=== PATIENT | female | born 1955 | race Caucasian/White ===

== ENCOUNTER → 2016-08-28 | Outpatient (CLI) | payer BC ==
--- NOTE | 2016-08-30 15:01 | XCELERA REPORT ---
[address] [address] Lower Extremity Arterial Evaluation Name: CARSON ALVAREZ Age: 60 yrs Gender: Female : 1955 Patient Status: Outpatient Patient Location: Study Date: 08/28/2016 01:27 PM Procedure: A color flow and duplex scan of the lower extremity arteries was performed bilaterally with velocity and waveform anaylsis. Ankle brachial indicies performed. Reason For Study: PVD Ordering Physician: NIYA WINSTON Performed By: Del Olivares Measurements and Calculations Right Left APPAREL RENTAL CLERK PSV 180.7 139.9 cm/sec Prox PFA PSV -70.6 -77.2 cm/sec Dist SFA PSV -107.6 -121.3 cm/sec Prox Pop A PSV 84.9 85.0 cm/sec Dist BRIAN PSV 87.3 70.3 cm/sec Dist CLAY PROCESSING LABOURER PSV 78.6 22.4 cm/sec Kody Pedis PSV 79.5 70.7 cm/sec Right Side Arterial Evaluation Normal velocity, waveform and triphasic flow are present, from the Common Femoral artery down to the infrageniculate vessels. The ankle-brachial index is 1.13. 0 % stenosis is noted. PPG's are normal. Left Side Arterial Evaluation Normal velocity, waveform and triphasic flow are present, from the Common Femoral artery down to the infrageniculate vessels. The ankle-brachial index is 1.10. 0 % stenosis is noted. PPG's are mildly dampened. Interpretation Summary No hemodynamically significant lesions in the bilateral lower extremities, on duplex imaging, at rest. Significance of PPG's on left is uncertain. : NIYA WINSTON > Blair Covington
== END ==
LOC: SP 13:02
PROVIDERS: ATTEND Podiatrist Foot Surgery
DX: I73.9 Peripheral vascular disease, unspecified (principal)
CPT/HCPCS: 93925

== ENCOUNTER 2016-11-05 06:39 | Day surgery (SDC) | payer BC ==
[~2016-11-05 06:39] MED LIST: CEFAZOLIN 1 GM/D5W RTU 1 GM/50 ML RTUPB IV PRN
[2016-11-05] MEDS ORDERED: MIDAZOLAM 2 MG/2 ML INJ ONE (06:54)
[2016-11-05] MEDS ORDERED: FENTANYL CITRATE INJ/PF 100 MCG/2 ML AMPUL ONE (06:54)
[2016-11-05] MEDS ORDERED: PROPOFOL INJ 200 MG/20 ML VIAL IV ONE (06:55)
[2016-11-05] MEDS ORDERED: BUPIVACAINE HCL 0.5 % INJ/PF 30 ML SDV ONE (07:11)
[2016-11-05] MEDS ORDERED: LIDOCAINE 2% INJ (20 MG/ML) 20 ML MDV ONE (07:11)
[2016-11-05] MEDS: WATER FOR INJECTION,STERILE 10 ML SDV ONE ×2 (08:35)
[2016-11-05] MEDS: BACITRACIN INJ 50,000 UNIT VIAL ONE ×2 (08:35)
[2016-11-05] MEDS: POLYMYXIN B SULFATE INJ 500000 UNIT VIAL ONE ×2 (08:35)
--- NOTE | 2016-11-05 09:43 | SURGICARE OPERATIVE REPORT E ---
[facility] Operative Report NAME: CARSON ALVAREZ AGE: 61Y DATE OF SURGERY: 11/05/2016 ROOM: PREOPERATIVE DIAGNOSIS: Hammertoe deformity with contracted second metatarsophalangeal joint, right foot. POSTOPERATIVE DIAGNOSIS: Hammertoe deformity with contracted second metatarsophalangeal joint, right foot. SURGICAL PROCEDURE: Arthroplasty at the proximal interphalangeal joint, second digit, right foot. SURGEON: NIYA WINSTON DPM ANESTHESIA: Babatunde Blankenship DPM PROCEDURE: Following induction of IV regional and local anesthesia, the right foot and leg were prepped and draped in the usual sterile manner. A pneumatic tourniquet was placed around the right ankle and inflated to 250 mmHg after exsanguination of the limb via Esmarch bandage. The following surgical procedure was then performed: Arthroplasty, proximal interphalangeal joint, second digit, right foot. Attention was directed to the dorsal aspect of the second digit of the right foot where an approximately 1.5-cm dorsal linear incision was made. The incision was deepened via sharp dissection. All bleeders were clamped and Bovied as necessary for the purposes of hemostasis. The extensor digitorum longus tendon was sharply incised in a transverse manner and reflected proximally from the bone. The hypertrophied head of the proximal phalanx was freed from its soft tissue attachments via sharp dissection. Utilizing bone cutting forceps, the hypertrophied head of the proximal phalanx was osteotomized perpendicular to the long axis of the bone and removed en toto from the wound. It was determined that a little bit more bone needed to be removed, so this was done utilizing a rongeur. The stump was then rasped smooth utilizing a handheld rasp. Attention was directed to the plantar aspect of the wound and utilizing sharp dissection the plantar plate was removed. The flexor digitorum longus tendon was isolated and clamped distally under the middle phalanx. It was then cut distally underneath the middle phalanx. The flexor digitorum longus tendon was then split longitudinally. The tendon was then threaded over the proximal phalanx medially and laterally and sutured on top of the proximal phalanx utilizing 3-0 FiberWire. The area was then flushed with copious amounts of an antibacterial saline solution. The extensor digitorum longus tendon was then coaptated and maintained utilizing simple interrupted sutures of 3-0 Vicryl. The skin was then coaptated and maintained utilizing horizontal mattress sutures of 5-0 nylon. It was noted at this time that the second toe was now no longer rigidly dorsally flexed up on top of itself and was now in a more rectus position. The foot was first cleansed with an alcohol foam. A dry sterile dressing was then applied consisting of Howard silk, 4 x 4s, Conform, Kerlix and Coban. The pneumatic tourniquet was released. It was noted that all digits were warm and viable. The patient was transferred to the recovery room. DICTATING PHYSICIAN: NIYA WINSTON D.P.M. [id number] PHY#: [id number] ID: [id number] JOB#: [id number] ACCT: [id number] cc:NIYA WINSTON DPM > INOCENCIA
--- NOTE | 2016-11-05 09:43 | SURGICARE DISCHARGE SUMMARY E ---
[facility] Discharge Summary NAME: CARSON ALVAREZ AGE: 61Y ADMITTED: 11/05/2016 DISCHARGED: 11/05/2016 SURGICAL PROCEDURE: Arthroplasty at the proximal interphalangeal joint, second digit, right foot. POSTOPERATIVE DIAGNOSIS: Hammertoe deformity, second digit, right foot, with contracted second metatarsophalangeal joint. SURGEON: Patricia Chen DPM HOUSEKEEPING AIDE: Babatunde Blankenship DPM SUMMARY: The patient was admitted to [facility] with a chief complaint of a painful second toe on her right foot. She has had a problem with the top of the toe ulcerating where it hit up against her shoes. The ulcer has finally healed and she now desired to have the toe straightened so she would no longer have this problem. The patient underwent the above surgical procedures without any complication and was transferred to the recovery room. She was discharged with a surgical shoe, an ice pack, postoperative instructions, and postoperative prescription for Tramadol 50 mg, #60. She was given a follow-up appointment in the doctor's office in 1 week and the patient was discharged from [facility]. DICTATING PHYSICIAN: PATRICIA CHEN D.P.M. [id number] PHY#: [id number] ID: [id number] JOB#: [id number] ACCT: [id number] cc:PATRICIA CHEN DPM >
== END 2016-11-05 09:57 | disposition home or self-care (01) ==
LOC: SC 06:39
PROVIDERS: ATTEND Podiatrist Foot Surgery
PROC: 0SQP0ZZ Repair Right Toe Phalangeal Joint, Open Approach (ICD-10-PCS; principal; 2016-11-05 07:30)
DX: M20.41 Other hammer toe(s) (acquired), right foot (principal); M19.90 Unspecified osteoarthritis, unspecified site; I10 Essential (primary) hypertension; K21.9 Gastro-esophageal reflux disease without esophagitis; E11.9 Type 2 diabetes mellitus without complications; F17.210 Nicotine dependence, cigarettes, uncomplicated; G47.30 Sleep apnea, unspecified; Z88.2 Allergy status to sulfonamides; Z88.5 Allergy status to narcotic agent; Z79.82 Long term (current) use of aspirin; Z79.899 Other long term (current) drug therapy; Z91.040 Latex allergy status
CPT/HCPCS: 82962; 28285; J2250; J3490 ×4; J0690; J2704; 1480; J3010

== ENCOUNTER → 2017-09-25 | Outpatient (CLI) | payer BC ==
--- NOTE | 2017-09-25 13:09 | WOMENS IMAGING REPORT ---
EXAM DESCRIPTION: BONE DENSITY HIP/SPINE COMPLETED DATE/TIME: 09/25/2017 11:56 am REASON FOR STUDY: OSTEOPOROSIS M81.0 AGE-RELATED OSTEOPOROSIS W/O CURRENT PATHOLOGICAL FRAC COMPARISON: None. TECHNIQUE: Dual-Energy X-ray Absorptiometry (DEXA) of the AP Spine and Hip. LIMITATIONS: None. FINDINGS: LUMBAR SPINE: The bone mineral density (BMD) measured from L1-L4 in the AP projection correlates with a T-score of 2.0, which is normal as defined by the World Health Organization. HIP: The bone mineral density (BMD) measured in the left hip correlates with a T-score of -1.0 in the femo ral neck, which is borderline osteopenia as defined by the World Health Organization. IMPRESSION: 1. LUMBAR SPINE: Normal 2. HIP: Borderline osteopenia COMMENT: The World Health Organization defines low BMD as follows: T-score: Normal: Greater than -1.0 Osteopenia: Between -1.0 and -2.5 Osteoporosis: Less than -2.5 without fractures Established osteoporosis: Less than -2.5 with fractures In general, you may wish to consider: Diagnosis Treatment Follow-up DEXA Normal BMD Prevention 2-3 years Osteopenia Prevention/Therapy 1-2 years Osteoporosis Therapy Yearly TECHNICAL DOCUMENTATION: JOB ID: [id number] [employer]- All Rights Reserved Reading location - IP/workstation name: [email or web address]
== END ==
LOC: WI 10:22
PROVIDERS: ATTEND Physician Assistant Medical
DX: M81.0 Age-related osteoporosis without current pathological fracture (principal)
CPT/HCPCS: 77080

== ENCOUNTER 2017-12-15 10:33 | Day surgery (SDC) | payer BC ==
[2017-12-07 12:28] LABS: HEMATOCRIT 40.9 % (36.0-47.0); HEMOGLOBIN 14.3 g/dL (12.0-15.5); MEAN CORPUSCULAR HEMOGLOBIN 34.1 pg (27.0-33.4); MEAN CORPUSCULAR HGB CONC 34.9 g/dL (32.0-36.0); MEAN CORPUSCULAR VOLUME 98 fl (80-97); PLATELET COUNT 154 10^3/uL (150-450); RED BLOOD COUNT 4.19 10^6/uL (3.72-5.28); RED CELL DISTRIBUTION WIDTH 13.5 % (11.5-14.0); WHITE BLOOD COUNT 6.4 10^3/uL (4.0-10.5)
[2017-12-07 12:54] LABS: ANION GAP 15 (5-19); BLOOD UREA NITROGEN 24 mg/dL (7-20); CALCIUM 9.7 mg/dL (8.4-10.2); CARBON DIOXIDE 25 mmol/L (22-30); CHLORIDE 100 mmol/L (98-107); GLUCOSE 105 mg/dL (75-110); POTASSIUM 4.3 mmol/L (3.6-5.0); SODIUM 140.3 mmol/L (137-145)
[2017-12-07 12:55] LABS: INTERNATIONAL RATION (INR) 1.05; PARTIAL THROMBOPLASTIN TIME 32.5 SEC (23.5-35.8); PROTHROMBIN TIME 14.2 SEC (11.4-15.4)
--- NOTE | 2017-12-07 12:58 | EKG REPORT ---
SEVERITY:- ABNORMAL ECG - SINUS RHYTHM NONSPECIFIC T WAVE CHANGES ANTEROSEPTAL WALL. : Confirmed by: Brian Mendoza MD 07-Dec-2017 12:58:09
[~2017-12-15 10:33] MED LIST changes: +LACTATED RINGERS 1000 ML IV PRN; +LIDOCAINE 0.5% INJ-PF (5 MG/ML) 50 ML SDV SUBCUT PRN; +LIDOCAINE 1%/EPINEPHRINE INJ 20 ML VIAL ONE; +SODIUM BICARBONATE 8.4% INJ 50 MEQ/50 ML DISP.SYRIN ONE
[2017-12-15] MEDS ORDERED: PROPOFOL INJ 200 MG/20 ML VIAL IV ONE (10:39)
[2017-12-15] MEDS ORDERED: MIDAZOLAM 2 MG/2 ML INJ ONE (10:39)
[2017-12-15] MEDS ORDERED: FENTANYL CITRATE INJ/PF 250 MCG/5 ML AMPULE ONE (12:07)
[2017-12-15] MEDS ORDERED: DIPHENHYDRAMINE HCL 50 MG/ML VIAL IV PRN (12:53)
[2017-12-15] MEDS ORDERED: PROMETHAZINE HCL INJ 25 MG/1 ML VIAL IV PRN (12:53)
[2017-12-15] MEDS ORDERED: MEPERIDINE HCL/PF INJ 25 MG/1 ML DISP.SYRIN IV PRN (12:53)
[2017-12-15] MEDS ORDERED: FENTANYL CITRATE INJ/PF 100 MCG/2 ML AMPUL IV PRN ×3 (12:53)
--- NOTE | 2017-12-15 13:04 | Operative Report ---
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 SURGEON: DAKOTA RANGEL ANESTHESIA: LMAC TISSUE REMOVED OR ALTERED: Basal squamous cell carcinoma of the right lower knee COMPLICATIONS: None ESTIMATED BLOOD LOSS: Minimal PROCEDURE: Patient seen and was marked prior to being brought into the operating room. Patient was brought into the operating room and placed on the operating room table in a supine position. Patient was then prepped with a Betadine scrub and Betadine solution and draped in a sterile and aseptic manner. The area was then marked. 12 O'clock was marked towards the knee 3 O'clock was marked towards the pre-tibia 6:00 was marked towards the ankle 9:00 was marked towards the posterior calf The area was then anesthetized with 1% lidocaine with epinephrine and bicarbonate for its anesthetic and hemostatic effects. The area was then excised and marked at 12:00. The specimen was sent for frozen section. The results came back that the deep and lateral margins were free. We had considered a primary closure but this would go against the natural relaxed skin tension lines. A primary closure would be too tight and would have increased chance of dehiscence. This will leave more of a scar so we decided to use a rotation flap reconstruction which would camouflage the scar better and take tension off of the closure so that would be less chances of complications. The flap we decided on would allow us to bend the knee with the least amount of pull on the flap itself. We will also allow us to keep the scar off the knee. The flap would allow us to use some of the looser skin on the posterior calf. Then we went ahead and outlined the flap and anesthetized it. We then incised the flap and developed a flap maintaining the subdermal plexus. Then we undermined 360 to allow for plate like scarring and minimize trap door deformity. Throughout the case hemostasis was achieved with the bipolar. We then sutured the flap into its new position using 4-0 Vicryl for the subcutaneous and deep dermis. Skin was closed with a running subcuticular suture stitch using 4-0 PDS with knots being tied on the outside. And 4-0 PDS suture was used for support and placed in the central area of the incision. We then applied tincture benzoin and Steri-Strips followed by a light pressure dressing. Patient was then reversed from anesthesia and taken to the [facility] for recovery. The patient tolerated well. There were no complications. Lesion size was approximately 2.2 cm please see pathology for actual size. Portions of this note may be dictated using [employer] voice recognition software. Occasional variations and spelling and vocabulary could be possible and are unintentional. Additionally, there is a chance that some errors may not be caught or corrected. Please notify the author of any discrepancies noted or if any statements are unclear. Subjective: No complaints Objective: Vital signs stable afebrile No bleeding Dressing intact Assessment and plan: Doing well. Elevate the operative site. Resume medications. Take antibiotics for 1 day Follow-up Full instructions were given to the patient and family and they understand Portions of this note may be dictated using [employer] voice recognition software. Occasional variations and spelling and vocabulary could be possible and are unintentional. Additionally, there is a chance that some errors may not be caught or corrected. Please notify the offer of any discrepancies noted or if any statements are unclear.
--- NOTE | 2017-12-15 13:06 | Discharge Summary ---
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 Leave the steri-strip tapes on for 5 days, then removal. Then cleaning wound with peroxide and apply Neosporin/bacitracin 3 times per day. Antibiotics for 1 day, then discontinue. Elevate operative area to decrease swelling. Do not strain, or lift heavy objects. Call for excessive bleeding, increased temperature of 101, uncontrolled pain, or excessive nausea or vomiting. You may reach Dr. Almeida through his office at [phone]. In the event of an emergency after hours, then contact Dr. Almeida through [facility]. Return to the office for a postop check on . The time will be scheduled by the nursing staff of [facility] prior to discharge. Please give the patient a copy of their labs and EKG so they can bring this to their PMD. Thank you Portions of this note may be dictated using [employer] voice recognition software. Occasional variations and spelling and vocabulary could be possible and are unintentional. Additionally, there is a chance that some errors may not be caught or corrected. Please notify the offer of any discrepancies noted or if any statements are unclear. Referrals: LORY VUONG PA-C [Primary Care Provider] - Discharge Diet: As Tolerated Report the Following to Your Physician Immediately: Unusual Bleeding - Keep leg elevated. Do not do excessive amount of standing or walking. Lightly exercise the leg.
[2017-12-15 14:29] VITALS: BP 134/75
== END 2017-12-15 14:25 | disposition home or self-care (01) ==
LOC: OROUT 10:33
PROVIDERS: ATTEND Plastic Surgery
DX: C44.722 Squamous cell carcinoma of skin of right lower limb, including hip (principal); I10 Essential (primary) hypertension; F17.210 Nicotine dependence, cigarettes, uncomplicated; M19.90 Unspecified osteoarthritis, unspecified site; I49.9 Cardiac arrhythmia, unspecified; Z79.899 Other long term (current) drug therapy; Z79.51 Long term (current) use of inhaled steroids; Z79.891 Long term (current) use of opiate analgesic; Z91.040 Latex allergy status; Z79.82 Long term (current) use of aspirin; Z88.2 Allergy status to sulfonamides
CPT/HCPCS: 93005; 36415; 82962; 85027; 85610; 85730; 80048; 88305 ×2; 88331 ×2; 93010; 14020; L1830; J2250; J0690; J3010; J3490 ×2; J2704; 400

== ENCOUNTER → 2019-02-14 | Outpatient (CLI) | payer BC ==
[2019-02-14 11:47] LABS: ABSOLUTE BASOPHILS # (AUTO) 0.1 10^3/uL (0.0-0.2); ABSOLUTE EOSINOPHILS # (AUTO) 0.2 10^3/uL (0.0-0.6); ABSOLUTE LYMPHOCYTES (AUTO) 1.5 10^3/uL (0.5-4.7); ABSOLUTE MONOCYTES (AUTO) 0.5 10^3/uL (0.1-1.4); ABSOLUTE NEUT (AUTO) 3.9 10^3/uL (1.7-8.2); EOSINOPHILS % (AUTO) 3.1 % (0-6); HEMATOCRIT 35.5 % (36.0-47.0); HEMOGLOBIN 12.4 g/dL (12.0-15.5); LYMPHOCYTES % (AUTO) 23.9 % (13-45); MEAN CORPUSCULAR HEMOGLOBIN 33.9 pg (27.0-33.4); MEAN CORPUSCULAR VOLUME 97 fl (80-97); MONOCYTES % (AUTO) 8.7 % (3-13); PLATELET COUNT 177 10^3/uL (150-450); RED BLOOD COUNT 3.67 10^6/uL (3.72-5.28); RED CELL DISTRIBUTION WIDTH 14.2 % (11.5-14.0); SEGMENTED NEUTROPHILS % (AUTO) 63.3 % (42-78); TOTAL CELLS COUNTED % (AUTO) 100 %; WHITE BLOOD COUNT 6.1 10^3/uL (4.0-10.5)
[2019-02-14 12:07] LABS: ANION GAP 11 (5-19); BLOOD UREA NITROGEN 30 mg/dL (7-20); CALCIUM 9.5 mg/dL (8.4-10.2); CARBON DIOXIDE 27 mmol/L (22-30); CHLORIDE 102 mmol/L (98-107); GLUCOSE 102 mg/dL (75-110); POTASSIUM 4.1 mmol/L (3.6-5.0)
[2019-02-14 17:20] LABS: AMORPHOUS SEDIMENT,URINE TRACE /HPF; APPEARANCE,URINE CLOUDY; BILIRUBIN,URINE NEGATIVE (NEGATIVE); COLOR,URINE YELLOW; GLUCOSE, URINE NEGATIVE (NEGATIVE); KETONES,URINE NEGATIVE (NEGATIVE); LEUKOCYTE ESTERASE,URINE LARGE (NEGATIVE); NITRITE,URINE POSITIVE (NEGATIVE); PROTEIN,URINE NEGATIVE (NEGATIVE); URINE SPECIFIC GRAVITY 1.011; UROBILINOGEN,URINE NEGATIVE mg/dL (<2.0)
== END ==
LOC: OD 11:16
PROVIDERS: ATTEND Physician Assistant Medical
DX: N17.9 Acute kidney failure, unspecified (principal); I12.9 Hypertensive chronic kidney disease with stage 1 through stage 4 chronic kidney disease, or unspecified chronic kidney disease; N18.3 Chronic kidney disease, stage 3 (moderate); R80.9 Proteinuria, unspecified
CPT/HCPCS: 36415; 80048; 81001; 83970; 84100; 85025; 87086; 87088

== ENCOUNTER → 2019-05-23 | Outpatient (CLI) | payer BC ==
[2019-05-23 13:21] LABS: ABSOLUTE EOSINOPHILS # (AUTO) 0.2 10^3/uL (0.0-0.6); ABSOLUTE LYMPHOCYTES (AUTO) 1.7 10^3/uL (0.5-4.7); ABSOLUTE MONOCYTES (AUTO) 0.4 10^3/uL (0.1-1.4); ABSOLUTE NEUT (AUTO) 2.9 10^3/uL (1.7-8.2); BASOPHILS % (AUTO) 0.8 % (0-2); EOSINOPHILS % (AUTO) 3.3 % (0-6); HEMATOCRIT 38.6 % (36.0-47.0); HEMOGLOBIN 13.5 g/dL (12.0-15.5); LYMPHOCYTES % (AUTO) 32.7 % (13-45); MEAN CORPUSCULAR HGB CONC 35.1 g/dL (32.0-36.0); MEAN CORPUSCULAR VOLUME 97 fl (80-97); MONOCYTES % (AUTO) 7.8 % (3-13); PLATELET COUNT 160 10^3/uL (150-450); RED BLOOD COUNT 3.98 10^6/uL (3.72-5.28); RED CELL DISTRIBUTION WIDTH 14.1 % (11.5-14.0); SEGMENTED NEUTROPHILS % (AUTO) 55.4 % (42-78); TOTAL CELLS COUNTED % (AUTO) 100 %; WHITE BLOOD COUNT 5.2 10^3/uL (4.0-10.5)
[2019-05-23 13:42] LABS: ANION GAP 11 (5-19); BLOOD UREA NITROGEN 24 mg/dL (7-20); CALCIUM 9.6 mg/dL (8.4-10.2); CARBON DIOXIDE 29 mmol/L (22-30); CHLORIDE 102 mmol/L (98-107); GLUCOSE 121 mg/dL (75-110); POTASSIUM 4.1 mmol/L (3.6-5.0)
[2019-05-23 15:16] LABS: APPEARANCE,URINE SLIGHTLY-CLOUDY; BILIRUBIN,URINE NEGATIVE (NEGATIVE); COLOR,URINE YELLOW; GLUCOSE, URINE NEGATIVE (NEGATIVE); KETONES,URINE NEGATIVE (NEGATIVE); LEUKOCYTE ESTERASE,URINE TRACE (NEGATIVE); NITRITE,URINE NEGATIVE (NEGATIVE); PROTEIN,URINE NEGATIVE (NEGATIVE); URINE SPECIFIC GRAVITY 1.011; UROBILINOGEN,URINE NEGATIVE mg/dL (<2.0)
== END ==
LOC: OD 13:03
PROVIDERS: ATTEND Physician Assistant Medical
DX: I12.9 Hypertensive chronic kidney disease with stage 1 through stage 4 chronic kidney disease, or unspecified chronic kidney disease (principal); N18.3 Chronic kidney disease, stage 3 (moderate); R80.9 Proteinuria, unspecified
CPT/HCPCS: 36415; 80048; 81001; 83970; 84100; 85025

== ENCOUNTER → 2020-04-02 | Outpatient (CLI) | payer MEDICARE, OTHER ==
[2020-04-02 15:54] LABS: APPEARANCE,URINE SLIGHTLY-CLOUDY; BILIRUBIN,URINE NEGATIVE (NEGATIVE); COLOR,URINE YELLOW; GLUCOSE, URINE NEGATIVE (NEGATIVE); KETONES,URINE NEGATIVE (NEGATIVE); LEUKOCYTE ESTERASE,URINE NEGATIVE (NEGATIVE); NITRITE,URINE NEGATIVE (NEGATIVE); PROTEIN,URINE NEGATIVE (NEGATIVE); URINE SPECIFIC GRAVITY 1.011
[2020-04-02 15:55] LABS: ABSOLUTE BASOPHILS # (AUTO) 0.1 10^3/uL (0.0-0.2); ABSOLUTE EOSINOPHILS # (AUTO) 0.1 10^3/uL (0.0-0.6); ABSOLUTE LYMPHOCYTES (AUTO) 1.7 10^3/uL (0.5-4.7); ABSOLUTE MONOCYTES (AUTO) 0.4 10^3/uL (0.1-1.4); ABSOLUTE NEUT (AUTO) 3.3 10^3/uL (1.7-8.2); EOSINOPHILS % (AUTO) 1.8 % (0-6); HEMATOCRIT 39.3 % (36.0-47.0); HEMOGLOBIN 13.6 g/dL (12.0-15.5); LYMPHOCYTES % (AUTO) 30.1 % (13-45); MEAN CORPUSCULAR HEMOGLOBIN 32.6 pg (27.0-33.4); MEAN CORPUSCULAR HGB CONC 34.7 g/dL (32.0-36.0); MEAN CORPUSCULAR VOLUME 94 fl (80-97); MONOCYTES % (AUTO) 7.6 % (3-13); PLATELET COUNT 166 10^3/uL (150-450); RED BLOOD COUNT 4.19 10^6/uL (3.72-5.28); RED CELL DISTRIBUTION WIDTH 15.1 % (11.5-14.0); SEGMENTED NEUTROPHILS % (AUTO) 59.5 % (42-78); TOTAL CELLS COUNTED % (AUTO) 100 %; WHITE BLOOD COUNT 5.6 10^3/uL (4.0-10.5)
[2020-04-02 16:17] LABS: ALBUMIN 4.5 g/dL (3.5-5.0); ANION GAP 10 (5-19); BLOOD UREA NITROGEN 18 mg/dL (7-20); CALCIUM 9.2 mg/dL (8.4-10.2); CARBON DIOXIDE 27 mmol/L (22-30); CHLORIDE 102 mmol/L (98-107); GLUCOSE 108 mg/dL (75-110); PHOSPHORUS 3.4 mg/dL (2.5-4.5)
== END ==
LOC: OD 15:03
PROVIDERS: ATTEND Physician Assistant Medical
DX: I12.9 Hypertensive chronic kidney disease with stage 1 through stage 4 chronic kidney disease, or unspecified chronic kidney disease (principal); N18.3 Chronic kidney disease, stage 3 (moderate); R80.9 Proteinuria, unspecified; N25.0 Renal osteodystrophy
CPT/HCPCS: 36415; 80069; 81001; 83970; 85025